=== PATIENT | male | born 1940 | race Caucasian/White ===

== ENCOUNTER 2017-04-02 11:16 | Day surgery (SDC) | payer BC ==
[~2017-04-02] VITALS: Ht 180.3 cm; Wt 91.8 kg
[~2017-04-02 11:16] MED LIST: ASPIR-LOX325 MG PO; ASPIRIN E.C. 8181 MG PO; BETAPACE 120MG120 MG PO; CHLOR-A-TAB4 MG PO; CHLOTAB PO; MAG-OX 400400 MG/TAB PO; PLAVIX 75MG TAB75 MG PO; ZOCOR; ZOCOR 40MG40 MG PO; magnesium oxide PO
[2017-04-02 11:53] VITALS: BP 138/86; PULSE 91; TEMP 98
[2017-04-02] MEDS ORDERED: PREVACID 15MG15 M1 PO (12:01)
[2017-04-02] MEDS ORDERED: PRILOSEC 20MG20 MG PO (12:05)
[2017-04-02 13:00] VITALS: BP 106/74; PULSE 89; TEMP 97.3
[2017-04-02 13:30] VITALS: BP 124/62; PULSE 64
[2017-04-02 13:45] VITALS: BP 118/66; PULSE 61
[2017-04-02 14:04] VITALS: BP 108/62; PULSE 62
== END 2017-04-02 14:00 | disposition home or self-care (01) ==
LOC: SDCO 11:16
DX: K21.0 Gastro-esophageal reflux disease with esophagitis (principal); K22.70 Barrett's esophagus without dysplasia; Z90.49 Acquired absence of other specified parts of digestive tract
CPT/HCPCS: J2250; J2405; J3010; J7030

== ENCOUNTER 2020-09-12 07:55 | Day surgery (SDC) | payer BC ==
[~2020-09-12] VITALS: Ht 180.3 cm; Wt 86.2 kg
[2020-09-12] VITALS (10 sets, daily range): BP systolic 124–156; BP diastolic 64–98; PULSE 54–92; TEMP 97.7
[~2020-09-12 07:55] MED LIST changes: +PREVACID 15MG15 M1 PO; +PRILOSEC 20MG20 MG PO
[2020-09-12] MEDS ORDERED: EPA FISH OIL1 SGL PO (09:00)
[2020-09-12 09:04] LABS: HEMOGLOBIN 12.7 g/dl (13.5-18.0); MEAN CELL VOLUME 96 fl (80.0-100.0); MEAN CORPUSCULAR HEMOGLOBIN 31 pg (27.0-31.0); MEAN CORPUSCULAR HGB CONC 32 g/dl (33.0-37.0); MEAN PLATELET VOLUME 9.9 fl (7.4-10.4); PLATELET COUNT 226 K/mm3 (130-400); RED BLOOD COUNT 4.17 M/mm3 (4.20-5.60); REDCELL DISTRIBUTION WIDTH-CV 12.1 % (11.5-14.5)
[2020-09-12 09:06] LABS: INR 1.1 (0.8-3.0); PROTHROMBIN TIME 12.6 SECONDS (9.7-12.8)
[2020-09-12 09:10] LABS: CALCIUM 8.6 mg/dL (8.4-10.2); CREATININE, serum 0.76 (0.66-1.25); POTASSIUM 4.3 mmol/L (3.4-5.0)
--- NOTE | 2020-09-12 10:16 | NUR ---
SEE MERGE FOR ALL MEDICATION ADMINISTRATION TIMES, INTRA AND POST SEDATION ASSESSMENT
[2020-09-12] MEDS ORDERED: CEPHALEXIN500 M1 PO (13:01)
--- NOTE | 2020-09-12 13:45 | NUR ---
Pt care was assumed from eLxi SAMPSON at 1030 when pt was transferred to express unit after generator change. pt did well during his period of bed rest. ice pack was applied promptly when he arrived on unit. HOB was elevated to at least 30 degrees. lunch was ordered. pt was able to eat lunch with no problem. I reviewed dc/rx and fu instructions. Pt verbalized understanding, and had no questions at the time of his departure. IV was dc'd with cath intact, dressing was applied. pt was escorted to exit via wheelchair.
== END 2020-09-12 13:55 | disposition home or self-care (01) ==
LOC: COL.CAR 07:55
PROVIDERS: Internal Medicine Cardiovascular Disease
DX: Z45.02 Encounter for adjustment and management of automatic implantable cardiac defibrillator (principal); I48.91 Unspecified atrial fibrillation; N40.0 Benign prostatic hyperplasia without lower urinary tract symptoms; E78.5 Hyperlipidemia, unspecified; M19.90 Unspecified osteoarthritis, unspecified site; I65.29 Occlusion and stenosis of unspecified carotid artery; I10 Essential (primary) hypertension; I47.2 Ventricular tachycardia
CPT/HCPCS: C1721; J0690; J2250; J3010; J7030

== ENCOUNTER 2021-08-05 06:53 | Day surgery (SDC) | payer BC ==
[~2021-08-05] VITALS: Ht 180.3 cm; Wt 73.9 kg
[~2021-08-05 06:53] MED LIST changes: +CEPHALEXIN500 M1 PO; +EPA FISH OIL1 SGL PO
[2021-08-05 07:22] VITALS: BP 104/79; PULSE 65; TEMP 97.3
[2021-08-05] MEDS ORDERED: ANTIBIOTIC PO (07:28)
[2021-08-05 08:50] VITALS: BP 108/57; PULSE 61
--- NOTE | 2021-08-05 08:50 | NUR ---
Patient returns to bay 1 per cart and transfers from cart to recliner with one person assist. IV fluids infusing and site is free of redness. Call light in reach. Coughing and expectorating white phelgm. Allowed to rest.
[2021-08-05 09:05] VITALS: BP 104/57; PULSE 57
--- NOTE | 2021-08-05 09:05 | NUR ---
More awake and is sipping on coffee and water. Eating muffin. Denies sore throat or any difficulty swallowing.
[2021-08-05 09:20] VITALS: BP 115/68; PULSE 59
--- NOTE | 2021-08-05 09:20 | NUR ---
Tolerated snack well. Offers no complaints.
--- NOTE | 2021-08-05 09:27 | NUR ---
Dr. Quach here and talks with the patient and all questions answered. IV discontinued and site is free of redness.
--- NOTE | 2021-08-05 09:37 | NUR ---
Dismissal instructions given and patient voices understanding of these. Patient dresses self.
--- NOTE | 2021-08-05 09:41 | NUR ---
Patient dismissed to home driven by spouse and taken to private vehicle per wheelchair and assisted into car with dismissal instructions in hand.
== END 2021-08-05 09:41 | disposition home or self-care (01) ==
LOC: SDCO 06:53
DX: K29.50 Unspecified chronic gastritis without bleeding (principal); K22.70 Barrett's esophagus without dysplasia; K44.9 Diaphragmatic hernia without obstruction or gangrene; K21.9 Gastro-esophageal reflux disease without esophagitis; Z90.49 Acquired absence of other specified parts of digestive tract
CPT/HCPCS: J2704; J7120

== ENCOUNTER 2021-10-10 12:39 | Inpatient (IN) | payer BC, MEDICARE ==
[~2021-10-10] VITALS: Ht 180.3 cm; Wt 80.6 kg
[2021-10-10] VITALS (342 sets, daily range): BP systolic 96–145; BP diastolic 60–91; PULSE 62–117; TEMP 97.7; O2SAT 77–100
[~2021-10-10 12:39] MED LIST changes: +ANTIBIOTIC PO
[2021-10-10 13:21] LABS: BASO % 0.2 % (0.0-2.0); EOS # 0.1 K/mm3 (0.0-0.7); EOS % 0.7 % (0.0-4.0); GRAN # 14.6 K/mm3 (1.4-6.5); GRAN % 86.9 % (42.2-75.2); HEMATOCRIT 38.2 % (42.0-52.0); LYMPH # 1.1 K/mm3 (1.2-3.4); LYMPH % 6.5 % (20.0-51.0); MEAN CELL VOLUME 92 fl (80.0-100.0); MEAN CORPUSCULAR HEMOGLOBIN 29 pg (27-31); MEAN CORPUSCULAR HGB CONC 31 g/dl (33.0-37.0); MEAN PLATELET VOLUME 9.8 fl (7.4-10.4); MONO # 0.9 K/mm3 (0.1-0.6); MONO % 5.1 % (1.7-9.3); PLATELET COUNT 425 K/mm3 (130-400); RED BLOOD COUNT 4.16 M/mm3 (4.20-5.60); REDCELL DISTRIBUTION WIDTH-CV 12.9 % (11.5-14.5)
[2021-10-10 13:36] LABS: ALANINE AMINOTRANSFERASE 62 U/L (0-55); ALBUMIN 1.9 gm/dL (3.4-4.8); ALKALINE PHOSPHATASE 220 U/L (40-150); ANION GAP 12 mmol/L (7-16); AST,SGOT 47 U/L (5-34); BILIRUBIN,TOTAL 0.6 mg/dL (0.2-1.2); BLOOD UREA NITROGEN 27 mg/dL (8-26); CALCIUM 8.6 mg/dL (8.4-10.2); CARBON DIOXIDE 29 mmol/L (23-31); CHLORIDE 96 mmol/L (98-107); GLUCOSE 105 mg/dL (70-99); POTASSIUM 4.7 mmol/L (3.5-4.5); SODIUM 137 mmol/L (136-145); TOTAL PROTEIN 6.7 gm/dL (6.2-8.1)
[2021-10-10 13:43] LABS: TROPONIN-I < 0.010 ng/mL (0.00-0.033)
[2021-10-10 13:43] LABS: ARTERIAL BLD GAS O2 SATURATION 96.5 % (92-100); ARTERIAL BLD GAS TCO2 CT 27.4; ARTERIAL BLOOD GAS BASE EXCESS 2.4 (-2-2); ARTERIAL BLOOD GAS HCO3 26.2 meq/L (22-26); ARTERIAL BLOOD GAS PCO2 37.6 mmHg (35-45); ARTERIAL BLOOD GAS PO2 83.9 mmHg (80-100); ARTERIAL BLOOD GAS pH 7.46 (7.35-7.45)
[2021-10-10 14:36] LABS: COLLECTION METHOD CLEAN CATCH
[2021-10-10 14:45] LABS: MUCOUS Present (NOT PRESENT); PH 7 (5-8); SQUAMOUS EPITHELIAL None Seen /hpf (0-10); URINE APPEARANCE Clear (CLEAR/HAZY); URINE BACTERIA None Seen /hpf (NONE SEEN); URINE BILIRUBIN Negative (NEGATIVE); URINE BLOOD Negative (NEGATIVE); URINE COLOR Yellow (YELLOW); URINE GLUCOSE Negative (NEGATIVE); URINE KETONE Negative (NEGATIVE); URINE LEUKOCYTE ESTERASE Negative (NEGATIVE); URINE NITRATE Negative (NEGATIVE); URINE PROTEIN(semi-quant) Negative (NEGATIVE); URINE RBC 0-2 /hpf (0-2); URINE UROBILINOGEN Negative (NEGATIVE)
[2021-10-10] MEDS ORDERED: ZYRTEC 10MG10 MG PO (15:12)
--- NOTE | 2021-10-10 17:15 | NUR ---
Arrived to the unit via stretcher; alert and oriented and in no distress. Attached to all monitors. Assessment completed. Call light left within reach.
--- NOTE | 2021-10-10 20:00 | NUR ---
Assessment complete and charted. Patient alert and orienated. Denies needs at this time. Call light in reach.
[2021-10-11] VITALS (706 sets, daily range): BP systolic 100–147; BP diastolic 48–79; PULSE 60–80; TEMP 97.7–98.9; O2SAT 75–100
[2021-10-11 05:31] LABS: INR 1.4 (0.8-3.0); PROTHROMBIN TIME 16.2 SECONDS (9.7-12.8)
--- NOTE | 2021-10-11 05:38 | NUR ---
Patient required tessalon and robitussin for cough during night. Remains on 0.01 mcg/kg/min of levophed. Otherwise uneventful. Call light in reach.
[2021-10-11 05:41] LABS: ALBUMIN 1.4 gm/dL (3.4-4.8); BILIRUBIN,TOTAL 0.4 mg/dL (0.2-1.2); CALCIUM 7.5 mg/dL (8.4-10.2); CREATININE, serum 0.65 mg/dL (0.72-1.25)
[2021-10-11 05:53] LABS: BASO % 0.3 % (0.0-2.0); EOS # 0.2 K/mm3 (0.0-0.7); EOS % 1.3 % (0.0-4.0); GRAN # 9.2 K/mm3 (1.4-6.5); GRAN % 81.1 % (42.2-75.2); LYMPH # 1.2 K/mm3 (1.2-3.4); LYMPH % 10.7 % (20.0-51.0); MEAN CELL VOLUME 92 fl (80.0-100.0); MEAN CORPUSCULAR HGB CONC 31 g/dl (33.0-37.0); MEAN PLATELET VOLUME 9.9 fl (7.4-10.4); MONO # 0.7 K/mm3 (0.1-0.6); MONO % 5.9 % (1.7-9.3); RED BLOOD COUNT 3.13 M/mm3 (4.20-5.60)
[2021-10-11 05:54] LABS: HEMATOCRIT 28.8 % (42.0-52.0); MEAN CORPUSCULAR HEMOGLOBIN 29 pg (27-31); PLATELET COUNT 323 K/mm3 (130-400)
--- NOTE | 2021-10-11 07:33 | NUR ---
RECEIVED BEDSIDE SHIFT REPORT FROM CAMILLA STOVER. PATIENT IS IN BED RESTING WITH EYES OPEN. VITAL SIGNS STABLE AT THIS TIME. CALL LIGHT WITHIN REACH. POSSIBILITY OF TRANSFER TO MEDICAL FLOOR TODAY.
--- NOTE | 2021-10-11 07:35 | NUR ---
Report given to CAMILLA Menon
--- NOTE | 2021-10-11 09:50 | NUR ---
Administrative Representative met with patient Nikunj and spouse Amanda ([phone]) at bedside for intake assessment/discharge planning. Patient gives verbal consent to speak to him with spouse at bedside. Patient informs he lives in a 2-story ranch home, and the bedroom and bathroom are on the basement floor, with 12 steps to the second floor where the kitchen is located. Patient has recently had difficulties navigating the stairs, and his spouse informs the plan has been to move his bedroom to the upstairs for easier accessibility. Spouse informs the family has not yet been able to coordinate the move, but they do have a daughter and [id number] available to assist with the move. Patient denies any use of DME and/or oxygen needs at home. He reports he is independent in all his ADls/IADLs. He confirms his primary care physician is Dr. Hadley Nelson, and he has outpatient providers for cardiology, ENT, and Pulmonology. He obtains his medications at [facility], and both patient and spouse report no concerns obtaining medications. Both patient and spouse report desire to discharge back to home following this hospitalization. Patient has no interest in any home health or half-way care prior to return to home. Patient informs his DPOA-HC is his spouse Amanda; he thought they had a copy in the medical record but spouse informs the living will has been updated recently. Spouse does not know if she will have access to obtain a copy of DPOA/Living Will at home to bring to be filed into the patient chart. Patient expresses no interest in completing DPOA-HC paperwork at this time. Physician notes patient is transferring from ICU to a Medical bed today and plan to seek biopsy on Wednesday. Physical therapy and Occupational therapy to be ordered to assist in determining safe discharge disposition. Social Work will continue to follow. *Discharge plan: Discharge to home vs. HH/SNF needs*
--- NOTE | 2021-10-11 10:00 | NUR ---
DR. FLANNERY AT BEDSIDE. SPOKE TO ABOUT PLAN OF CARE AND TRANSFER TO MEDICAL FLOOR TODAY. AGREEABLE.
--- NOTE | 2021-10-11 10:53 | NUR ---
CALLED [facility]IX IN ECHO TO SEE IF THE ORDER WAS GOING TO BE CARRIED OUT. SHE TOLD ME SHE WAS ONLY AIRCRAFT RESTORER UNTIL 1100.
--- NOTE | 2021-10-11 11:16 | NUR ---
Initial visit; Patient doing alright and he and his family thanked Screener Perfumer for keeping him in her prayers.
--- NOTE | 2021-10-11 18:16 | NUR ---
PATIENT ARRIVED FROM ICU AT 1230. SETTLED IN BED. NO COMPLAINTS OF PAIN, USES YANKOUR TO SUCTION OWN SECREATIONS. AND DAUGHTER BEDSIDE. PATIENT ORDERED LUNCH, THEN NAPPED UNTIL THIS EVENING. ORDERED DINNER, SOLUMEDROL GIVEN. NECK PILLOW MADE FROM BATH BLANKET TO ASSIST IN SLEEPING POSITION THAT DOES NOT OCCLUDE CENTRAL LINE. FREQUENT COUGH, HARD OF HEARING, VERY PLESANT. DID NOTE TO AUTHOR THAT HE FEELS HE MAY BE GETTING CONSTIPATED.
--- NOTE | 2021-10-11 18:26 | NUR ---
PATIENT WITH NO COMPLAINTS OF PAIN, RESTING COMFORTABLY IN BED. IV ZOSYN AND NS RUNNING. FAMILY AT BEDSIDE. LUNCH ORDERED.
--- NOTE | 2021-10-11 21:08 | NUR ---
TX GIVEN VIA MOUTHPIECE, TOLERATED WELL.
[2021-10-12] VITALS (7 sets, daily range): BP systolic 107–133; BP diastolic 46–60; PULSE 54–64; TEMP 97.4–98.2
[2021-10-12 04:38] LABS: MEAN CELL VOLUME 95 fl (80.0-100.0); MEAN CORPUSCULAR HGB CONC 31 g/dl (33.0-37.0); MEAN PLATELET VOLUME 10.2 fl (7.4-10.4); PLATELET COUNT 246 K/mm3 (130-400); RED BLOOD COUNT 2.83 M/mm3 (4.20-5.60); REDCELL DISTRIBUTION WIDTH-CV 12.7 % (11.5-14.5)
[2021-10-12 04:55] LABS: HEMATOCRIT 26.8 % (42.0-52.0); HEMOGLOBIN 8.3 g/dl (13.5-18.0); MEAN CORPUSCULAR HEMOGLOBIN 29 pg (27-31)
[2021-10-12 04:58] LABS: INR 1.3 (0.8-3.0); PROTHROMBIN TIME 14.9 SECONDS (9.7-12.8)
[2021-10-12 05:04] LABS: ALBUMIN 1.3 gm/dL (3.4-4.8); BILIRUBIN,TOTAL 0.2 mg/dL (0.2-1.2); CALCIUM 7.5 mg/dL (8.4-10.2); CREATININE, serum 0.63 mg/dL (0.72-1.25); TOTAL PROTEIN 4.7 gm/dL (6.2-8.1)
[2021-10-12 05:22] LABS: ANISOCYTOSIS 1+; LYMPHOCYTE 6 % (20.0-51.0); NEUTROPHILS 94 % (42.0-75.2)
[2021-10-12 05:23] LABS: PLATELET ESTIMATE NORMAL (NORMAL)
--- NOTE | 2021-10-12 06:34 | NUR ---
weaned to 1L O2 tonight, IVF infusing per [facility] @ 100cc/hr, requested prn cough med @ HS x1. self-suctioning mouth for thick, andrea colored secretions.
--- NOTE | 2021-10-12 07:32 | NUR ---
CALLED CAMILLA HOLT REGARDING 12 BEAT RUN OF V-TACH.
--- NOTE | 2021-10-12 11:43 | NUR ---
PATIENT IN GOOD SPIRITS THIS MORNING. NO COMPLAINTS OF PAIN. STATES BREATHING AND COUGH BETTER. AMBULATING IN ROOM AND IN HALLWAY WITH PT TODAY. WEANED TO ROOM AIR. PERFORMED ADLS AND PERSONAL HYGINE WITH NO ASSISTANCE. BRONCHOSCOPY SCHEDULED FOR TOMORROW.
--- NOTE | 2021-10-12 19:06 | NUR ---
NO SIGNIFICANT EVENTS THIS SHIFT. PATIENT PLANS FOR BRONCH IN AM. NO COMPLAINTS OF PAIN. AMBULATION IN ROOM INDEPENDENTLY. ON ROOM AIR, CLEARING SECREATIONS APPROPRIATELY. FLUIDS RUNNING. APPETITIE INCREASING.
--- NOTE | 2021-10-12 19:07 | NUR ---
RECEIVED CHANGE OF SHIFT REPORT FROM DAY SHIFT RN.
--- NOTE | 2021-10-12 22:44 | NUR ---
PATIENT UP IN ROOM, INDEPENDENTLY, NOT WEARING SCDs.
--- NOTE | 2021-10-12 23:25 | NUR ---
PATIENT RESTING, SLEEPING, DOES NOT WAKE WHEN DOOR TO ROOM IS OPENED BY NURSING ON ROUND. BREATHING NONLABORED AND EVEN. IVF INFUSING WITH NO PROBLEMS. CALL LIGHT WITHIN REACH.
[2021-10-13] VITALS (15 sets, daily range): BP systolic 106–163; BP diastolic 45–77; PULSE 58–73; TEMP 97.7–98.1
--- NOTE | 2021-10-13 04:01 | NUR ---
LMOM FOR RADIOLOGY SCHEDULING TO SCHEDULE LUNG BX PER RADIOLOGY FOR TODAY, 10/13.
--- NOTE | 2021-10-13 04:15 | NUR ---
FAXED SCREENSHOT COPY OF ORDER FOR LUNG BX TO [facility] SCHEDULING.
--- NOTE | 2021-10-13 06:48 | NUR ---
CHANGE OF SHIFT REPORT GIVEN TO DAY SHIFT RN, CHRISTIANNE.
[2021-10-13 07:47] LABS: MEAN CELL VOLUME 91 fl (80.0-100.0); MEAN CORPUSCULAR HGB CONC 32 g/dl (33.0-37.0); MEAN PLATELET VOLUME 9.6 fl (7.4-10.4); PLATELET COUNT 297 K/mm3 (130-400); RED BLOOD COUNT 3.06 M/mm3 (4.20-5.60); REDCELL DISTRIBUTION WIDTH-CV 12.7 % (11.5-14.5)
[2021-10-13 07:50] LABS: HEMATOCRIT 27.7 % (42.0-52.0); HEMOGLOBIN 8.9 g/dl (13.5-18.0); MEAN CORPUSCULAR HEMOGLOBIN 29 pg (27-31)
[2021-10-13 07:56] LABS: INR 1.2 (0.8-3.0); PROTHROMBIN TIME 14.2 SECONDS (9.7-12.8)
[2021-10-13 08:04] LABS: ALBUMIN 1.5 gm/dL (3.4-4.8); BILIRUBIN,TOTAL 0.2 mg/dL (0.2-1.2); CALCIUM 7.6 mg/dL (8.4-10.2); CREATININE, serum 0.59 mg/dL (0.72-1.25); POTASSIUM 4.1 mmol/L (3.5-4.5); TOTAL PROTEIN 4.8 gm/dL (6.2-8.1)
[2021-10-13 08:10] LABS: BAND 4 % (0-10); LYMPHOCYTE 3 % (20.0-51.0); NEUTROPHILS 92 % (42.0-75.2)
[2021-10-13 08:11] LABS: PLATELET ESTIMATE NORMAL (NORMAL)
[2021-10-13 08:12] LABS: HYPOCHROMIA 1+
--- NOTE | 2021-10-13 10:54 | NUR ---
PATIENT RESTING COMFORTABLY IN BED, NO COMPLAINTS OF PAIN. NO COMPLAINTS OF COUGH. PREPPED FOR CT GUIDED LUNG BIOPSY. CONSENT SIGNED. NPO OVERNIGHT. BLANCHABLE REDNESS ON LOWER SPINAL PROTUBERANCES. MEPALEX FOAM DRESSING APPLIED. PATIENT USING EGG CRATE MATTRESS PAD WELL.
--- NOTE | 2021-10-13 15:29 | NUR ---
Manager Market Development met with patient to review IM form as he may discharge tomorrow. Patient states he plans to return home and has no concerns doing so. SW presented and reviewed IM form with patient who verbalized understanding and provided signature. SW placed form in chart and provided copy to patient. When SW returned copy, patient's was at bedside to visit. Discharge Plan: Home
--- NOTE | 2021-10-13 18:04 | NUR ---
PATIENT TOLERATED CT GUIDED LUNG BIOPSY TODAY. VITALS REMAINED STABLE S/P. NO COMPLAINTS OF PAIN. NO SHORTNESS OF BREATH. SPUTUM CLEAR AND THIN TODAY. MEPALEX FOAM ADDED TO SPIN REDNESS. SKIN STILL BLANCHABLE. PLAN FOR PATIENT TO DC HOME TOMORROW.
--- NOTE | 2021-10-13 22:50 | NUR ---
PATIENT ALERT AND ORIENTED. DENIES PAIN. LUNG BIOPSY SITE CDI WITH BANDAID. MEDS ADMINISTERED PER EMAR. TELE SHOWING A PACED. TLC R IJ PATENT AND FLUSHED WITH GOOD BLOOD RETURN. MEPILEX TO SPINE REMOVED IT WAS BUNCHING UP AND UNCOMFORTABLY UNDERNEATH PATIENT. DENIES ADDITIONAL NEEDS. CURRENTLY RESTING IN BED, CALL LIGHT IN REACH.
[2021-10-14 04:22] VITALS: BP 136/68; PULSE 84; TEMP 97.5
[2021-10-14 06:01] LABS: MEAN CELL VOLUME 91 fl (80.0-100.0); MEAN CORPUSCULAR HGB CONC 32 g/dl (33.0-37.0); PLATELET COUNT 279 K/mm3 (130-400); RED BLOOD COUNT 3.06 M/mm3 (4.20-5.60); REDCELL DISTRIBUTION WIDTH-CV 12.8 % (11.5-14.5)
[2021-10-14 06:06] LABS: HEMATOCRIT 27.9 % (42.0-52.0); HEMOGLOBIN 8.8 g/dl (13.5-18.0); MEAN CORPUSCULAR HEMOGLOBIN 29 pg (27-31)
[2021-10-14 06:21] LABS: CALCIUM 7.5 mg/dL (8.4-10.2); CREATININE, serum 0.78 mg/dL (0.72-1.25); POTASSIUM 4.3 mmol/L (3.5-4.5)
--- NOTE | 2021-10-14 06:45 | NUR ---
Report received, assumed care for day shift.
[2021-10-14 07:21] LABS: BAND 3 % (0-10); LYMPHOCYTE 6 % (20.0-51.0); NEUTROPHILS 90 % (42.0-75.2)
[2021-10-14 07:22] LABS: OVALOCYTES 1+; PLATELET ESTIMATE NORMAL (NORMAL)
[2021-10-14 07:31] VITALS: BP 152/75; PULSE 66; TEMP 98.2
[2021-10-14] MEDS ORDERED: PREDNISONE20 MG PO (07:53)
[2021-10-14] MEDS ORDERED: DOXYCYCLINE 10100 MG PO (07:54)
[2021-10-14] MEDS ORDERED: CEFTIN500 MG PO (07:56)
--- NOTE | 2021-10-14 08:00 | NUR ---
Assessment complete. A&Ox3. VS stable. O2@1L/NC with adequate saturations. Denies nausea. Short of breath with activity. TELE reporting A paced. Triple lumen central to right IJ flushes well-good blood return. NS@60ml/hr. All lung gonzales diminished. Plan of care discussed for this shift to include meds/possible DC/calling for questions/concerns. Verbalizes understanding. Call light in reach. Will monitor.
[2021-10-14] MEDS ORDERED: PROAIR HFA0.09 MG/AC IH (08:44)
--- NOTE | 2021-10-14 09:05 | NUR ---
Call from Tele requsting lead check. Patient currently up to bathroom and doing hygeine.
[2021-10-14] MEDS ORDERED: OXYGEN NASAL.CANN (09:28)
--- NOTE | 2021-10-14 10:30 | NUR ---
Discharge instructions given both verbal and handwritten. Discussed f/u appts, s/s of infection, when to report back to the ER, home medications and oxygen use. Paperwork signed and denies questions/concerns. Currently waiting on ride/home O2 arrangements. Will escort out via wheelchair when arrangements complete.
--- NOTE | 2021-10-14 11:00 | NUR ---
RIght IJ central line DCd at this time. Sutures x2 removed, cath removed intact and pressure dressing applie-gauze 2x2 with tegaderm. Pressure applied to site. Instructed to remain flat for 30minutes. Verbalizes understanding.
--- NOTE | 2021-10-14 11:15 | NUR ---
Social Work student faxed oxygen orders to [facility]. KYRA Cortez called [facility] to let them know.
--- NOTE | 2021-10-14 12:17 | NUR ---
Family at bedside. Discharge instructions given both verbal and handwritten to family per request. Instructions given on portable oxygen tank. Switched over at this time. Dressing to right IJ DC site remains CDI. Escorted off ross by family via wheelchair with SHAILESH Lennon in stable condition.
--- NOTE | 2021-10-14 15:24 | NUR ---
Fur Weigher was notified that patient will require home oxygen set up prior to discharge. SW met with patient to provide update and he did not have a preference on which oxygen provider to use. KYRA contacted patient's , Amanda who advised she will be picking up a CPAP for herself from [facility], so this would be most convienent for her. Amanda confirmed she can just belt picker patient's oxygen supplies when she picks up her CPAP. Amanda advised patient is also having a new bed delivered from [facility] today. SW Student faxed oxygen referral and orders to Heidy at [facility]. KYRA spoke with Heidy who confirmed oxygen supplies were picked up and home set up would be completed today. Discharge Plan: Home with home oxygen
== END 2021-10-14 12:10 | disposition home or self-care (01) | DRG 871 ==
LOC: COL.ER 12:39 → ICU 15:33 → MEDICAL 15:33
PROVIDERS: Nurse Practitioner Primary Care; Physician Assistant; ADMIT Student in an Organized Health Care Education/Training Program
PROC: 05HM33Z Insertion of Infusion Device into Right Internal Jugular Vein, Percutaneous Approach (ICD-10-PCS; principal; 2021-10-10)
PROC: 0BBJ3ZX Excision of Left Lower Lung Lobe, Percutaneous Approach, Diagnostic (ICD-10-PCS; 2021-10-13)
DX: A41.9 Sepsis, unspecified organism (principal); R65.21 Severe sepsis with septic shock; J96.01 Acute respiratory failure with hypoxia; J18.8 Other pneumonia, unspecified organism; E43 Unspecified severe protein-calorie malnutrition; C77.9 Secondary and unspecified malignant neoplasm of lymph node, unspecified; C34.92 Malignant neoplasm of unspecified part of left bronchus or lung; R04.2 Hemoptysis; I48.91 Unspecified atrial fibrillation; E78.5 Hyperlipidemia, unspecified; K21.9 Gastro-esophageal reflux disease without esophagitis; E83.52 Hypercalcemia; I71.9 Aortic aneurysm of unspecified site, without rupture; Z95.810 Presence of automatic (implantable) cardiac defibrillator; Z86.73 Personal history of transient ischemic attack (TIA), and cerebral infarction without residual deficits; Z95.0 Presence of cardiac pacemaker; Z99.81 Dependence on supplemental oxygen; Z79.82 Long term (current) use of aspirin; Z20.822 Contact with and (suspected) exposure to COVID-19; Z68.24 Body mass index [BMI] 24.0-24.9, adult
CPT/HCPCS: 99222-AI; 99232-AI; 99233-AI; 99239; C9113; J2543; J2920; J3370; J7030; J7050; J7060; Q9967

== ENCOUNTER 2022-02-03 19:47 | Emergency (ER) | payer BC ==
[~2022-02-03] VITALS: Ht 180.3 cm; Wt 70.5 kg
[~2022-02-03 19:47] MED LIST changes: +CEFTIN500 MG PO; +DOXYCYCLINE 10100 MG PO; +OXYGEN NASAL.CANN; +PREDNISONE20 MG PO; +PROAIR HFA0.09 MG/AC IH; +ZYRTEC 10MG10 MG PO
[2022-02-03 19:54] VITALS: TEMP 100.6
[2022-02-03 20:51] LABS: BASO % 0.3 % (0.0-2.0); EOS # 0.1 K/mm3 (0.0-0.7); EOS % 1.2 % (0.0-4.0); GRAN % 84.4 % (42.2-75.2); HEMATOCRIT 38.6 % (42.0-52.0); HEMOGLOBIN 12.8 g/dl (13.5-18.0); LYMPH # 0.7 K/mm3 (1.2-3.4); LYMPH % 7.5 % (20.0-51.0); MEAN CELL VOLUME 93 fl (80.0-100.0); MEAN CORPUSCULAR HEMOGLOBIN 31 pg (27-31); MEAN CORPUSCULAR HGB CONC 33 g/dl (33.0-37.0); MEAN PLATELET VOLUME 9.8 fl (7.4-10.4); MONO # 0.6 K/mm3 (0.1-0.6); MONO % 6.3 % (1.7-9.3); PLATELET COUNT 210 K/mm3 (130-400); RED BLOOD COUNT 4.15 M/mm3 (4.20-5.60); REDCELL DISTRIBUTION WIDTH-CV 12.1 % (11.5-14.5)
[2022-02-03 21:01] LABS: ALBUMIN 2.5 gm/dL (3.4-4.8); BILIRUBIN,TOTAL 0.8 mg/dL (0.2-1.2); CALCIUM 8.9 mg/dL (8.4-10.2); CREATININE, serum 0.74 mg/dL (0.72-1.25); POTASSIUM 4.4 mmol/L (3.5-4.5); TOTAL PROTEIN 6.3 gm/dL (6.2-8.1)
[2022-02-03 21:06] LABS: TROPONIN-I 0.02 ng/mL (0.00-0.033)
[2022-02-03 22:06] LABS: COLLECTION METHOD CLEAN CATCH
[2022-02-03] MEDS ORDERED: OMNICEF 300MG300 MG PO (22:25)
[2022-02-03] MEDS ORDERED: PREDNISONE20 MG PO (22:25)
[2022-02-03 22:28] LABS: PH 5.5 (5.0-8.5); URINE APPEARANCE Clear (CLEAR/HAZY); URINE BLOOD Negative (NEGATIVE); URINE COLOR Yellow (YELLOW); URINE GLUCOSE Negative (NEGATIVE); URINE KETONE 4+ (NEGATIVE); URINE NITRATE Negative (NEGATIVE); URINE PROTEIN(semi-quant) Negative (NEGATIVE); URINE UROBILINOGEN 0.2 E.U/dL (0.2-1.0)
[2022-02-03 22:29] LABS: MUCOUS Present (NOT PRESENT); SQUAMOUS EPITHELIAL 0-2 /hpf (0-10); URINE BACTERIA None Seen /hpf (NONE SEEN); URINE RBC 0-2 /hpf (0-2)
[2022-02-03] MEDS ORDERED: NORCO 325 MG-51 TAB PO (22:35)
[2022-02-03 23:16] VITALS: BP 141/70; PULSE 81
== END 2022-02-03 23:19 | disposition home or self-care (01) ==
LOC: COL.ER 19:47
PROVIDERS: Family Medicine
DX: J18.9 Pneumonia, unspecified organism (principal)
CPT/HCPCS: J0696; J2930; J7030; Q9967

== ENCOUNTER 2023-12-20 10:44 | Outpatient (CLI) | payer BC, MEDICARE ==
[~2023-12-20] VITALS: Ht 182.9 cm; Wt 74.1 kg
[~2023-12-20 10:44] MED LIST changes: +ASPIRIN 81M81 MG/TA2 PO; +CLEOCIN HCL300 MG PO; +FOLIC ACID 11 MG/TA1 PO; +NATURAL MAGNES200 MG PO; +NORCO 325 MG-51 TAB PO; +OMNICEF 300MG300 MG PO; +REGLAN 10MG10 MG/TAB PO; +VITAMIN B12 681 TAB PO; +XANAX 0.5MG0.5 MG PO; +ZITHROMAX 250M250 MG PO
[2023-12-20 10:57] VITALS: BP 147/75; PULSE 78; TEMP 97.7
[2023-12-20] MEDS ORDERED: Denosumab 60 MG/ML SYRINGE SQ ONE (11:00)
[2023-12-20] MEDS ORDERED: PROLIA60 MG/ML SQ (11:14)
[2023-12-20] MEDS ORDERED: CALCIUM 600-D 61 TAB PO (11:14)
--- NOTE | 2023-12-20 11:42 | NUR ---
Pt remained in dept for montioring following initial dose of prolia. He remains free of complaints or s/s of reaction. Pt education packet about prolia was printed and given to pt for review prior to administration. He is escorted out to elevator. Free of complaints at discharge.
== END 2023-12-20 11:44 | disposition home or self-care (01) ==
LOC: EUO 10:44
DX: M81.0 Age-related osteoporosis without current pathological fracture (principal)
CPT/HCPCS: J0897